=== PATIENT | female | born 1960 | race Hispanic/Latino ===

== ENCOUNTER → 2017-10-12 | Outpatient (CLI) | payer BC | LOC: MAMMO 11:09 | PROVIDERS: ATTEND Internal Medicine | DX: Z12.31 Encounter for screening mammogram for malignant neoplasm of breast (principal) ==

== ENCOUNTER → 2018-08-07 | Day surgery (SDC) | payer BC ==
[2018-08-01 11:04] LABS: BASOPHILS # (AUTO) 0.1 (0.0-0.1); BASOPHILS % 0.6 % (0.0-1.0); EOSINOPHILS # (AUTO) 0.2 (0.0-0.4); EOSINOPHILS % 2.6 % (0.0-6.0); HEMATOCRIT 40.8 % (34.2-44.1); LYMPHOCYTES # (AUTO) 2.8 (1.0-3.2); LYMPHOCYTES % 30.4 % (18.0-39.1); MEAN CORPUSCULAR HGB CONC 34.3 g/dL (31-35); MEAN CORPUSCULAR VOLUME 87.6 fL (81-99); MONOCYTES # (AUTO) 1.1 (0.2-0.8); MONOCYTES % 11.9 % (4.4-11.3); NEUTROPHILS # (AUTO) 4.9 (2.1-6.9); NEUTROPHILS % 54.1 % (38.7-80.0); PLATELET COUNT 271 x10e3/uL (140-360); RED BLOOD COUNT 4.66 x10e6/uL (3.6-5.1); RED CELL DISTRIBUTION WIDTH 13.7 % (11.7-14.4)
[2018-08-01 11:27] LABS: ANION GAP 13.1 mmol/L (8-16); BLOOD UREA NITROGEN 14 mg/dL (7-26); BUN/CREATININE RATIO 19 (6-25); CALCIUM 9.6 mg/dL (8.4-10.2); CARBON DIOXIDE 28 mmol/L (22-29); CHLORIDE 104 mmol/L (98-107); CREATININE, SERUM 0.72 mg/dL (0.57-1.11); EST GLOMERULAR FILTRATION RATE > 60 ML/MIN (60-); GLUCOSE 100 mg/dL (74-118); POTASSIUM 4.1 mmol/L (3.5-5.1); SODIUM 141 mmol/L (136-145)
--- NOTE | 2018-08-01 11:38 | Diagnostic Imaging Report ---
EXAM: XR CHEST 2 VIEWS DATE: 08/01/2018 10:30 AM INDICATION: Preoperative, pain COMPARISON: None FINDINGS: Lines and Tubes: None Heart and Mediastinum: No acute cardiomediastinal findings. Lungs and Pleura: No significant pleural effusion, pneumothorax, or focal consolidation. Mild biapical scarring. Bones and Soft Tissues: No acute findings. IMPRESSION: 1. No acute cardiopulmonary findings. Signed by: Dr. Angel Newell MD on 08/01/2018 11:34 AM
[~2018-08-07] MED LIST: ACETAMINOPHEN 1000 MG/100 ML IV ONE; BACITRACIN 50,000 UNIT VIAL ONE; BETAMETHASONE DISODIUM PHOS 6 MG/ML VIAL ONE; BUPIVACAINE HCL 0.5% INJ 30 ML VIAL INJ ONE; CALTRATE 600 W1 EACH PO; CEFAZOLIN SOD 2 GM/D5W 50ML 50 ML IV ONE; CENTRUM COMPLE1 EACH PO; DEXAMETHASONE SOD PHOS INJ 4 MG/ML VIAL ONE; FENTANYL CITRATE/PF 100MCG/2 ML INJ ONE; LIDOCAINE HCL 1% LOCAL INJ 20 ML VIAL ONE; LIPITOR10 MG PO; MAGNESIUM OXID400 MG PO; MIDAZOLAM HCL 2 MG/2 ML VIAL ONE; MORPHINE SULFATE INJ 4 MG/ML INJ ONE; MUPIROCIN 2% OINT 22 GM TUBE ONE; OMEGA PLEX PO; ONDANSETRON HCL INJ 2 MG/ML VIAL ONE; PROBIOTIC & AC1 EACH PO; SEVOFLURANE INHAL SOLN 250 ML PEN BTL ONE; VIT PO; [UNRECOGNIZED DRUG - OTHER] PO; [UNRECOGNIZED DRUG - OTHER] PO
--- OUTSIDE RECORDS SUMMARY | 2018-08-07 05:32 | XMS REPORT ---
Author Author [facility] Address Unknown Phone Unavailable Care Team Providers Care [employer] Name Role Phone BASILIA ZHU Unavailable Unavailable BLAS RICE Unavailable Unavailable Problems This patient has no known problems. Allergies, Adverse Reactions, Alerts This patient has no known allergies or adverse reactions. Medications This patient has no known medications. Results Test Description Test Time Test Comments Text Results Atomic Results Result Comments CHEST 2 VIEWS 2018-08-01 11:34:00 [facility] [address] [place] [address] Patient Name: SUNIL GOMES MR #: [id number] : 1960 Age/Sex: 58/F Req #: [id number] Adm Physician: Ordered by: BASILIA ZHU DPM Report #: [id number] Location: OR Room/Bed: Procedure: [id number] DX/CHEST 2 VIEWS Exam Date: 08/01/18 Exam Time: 1035 REPORT STATUS: Signed EXAM: XR CHEST 2 VIEWS DATE: 08/01/2018 10:30 AM INDICATION: Preoperative, pain COMPARISON: None FINDINGS: Lines and Tubes: None Heart and Mediastinum: No acute cardiomediastinal findings. Lungs and Pleura: No significant pleural effusion, pneumothorax, or focal consolidation. Mild biapical scarring. Bones and Soft Tissues: No acute findings. IMPRESSION: 1. No acute cardiopulmonary findings. Signed by: Dr. Angel Newell MD on 08/01/2018 11:34 AM Dictated By: ANGEL NEWELL MD 33 Transcribed By: NIRAV on 08/01/181133 COPY TO: BASILIA ZHU DPM MAMMOGRAM DIGITAL SCR BI [place] [address] Patient Name: SUNIL GOMES MR #: [id number] : 1960 Age/Sex: 57/F Req #: [id number] Adm Physician: Ordered by: DARIO GONZALEZ MD Report #: [id number] Location: MAMMO Room/Bed: Procedure: [id number] MG/MAMMOGRAM DIGITAL SCR BI Exam Date: 10/12/17 Exam Time: 1111 REPORT STATUS: Signed #[id number] - MGSCRNBI #BILATERAL DIGITAL SCREENING MAMMOGRAM WITH CAD: 10/12/2017 CLINICAL: Routine screening. Comparison is made to exams dated: 06/28/2016 mammogram and 12/22/2014 mammogram - [facility]. Current study contains 4 films. The tissue of both breasts is predominantly fatty. Current study was also evaluated with a Computer Aided Detection (CAD) system. No significant masses, calcifications, or other findings are seen in either breast. There has been no significant interval change. IMPRESSION: NEGATIVE There is no mammographic evidence of malignancy. A 1 year screening mammogram is recommended. The patient will be notified by letter of the results. Aylin colvin/xavi:10/25/2017 08:41:34 Blade Balancer: Jackelyn HARRELL(R)(M), [facility] letter sent: Compared to Prior B9 Mammogram BI-RADS: 1 Negative Dictated By: AYLIN TIDWELL DO 0 Transcribed By: XAVI on 10/25/17840 COPY TO: DARIO GONZALEZ MD
--- NOTE | 2018-08-07 09:50 | Diagnostic Imaging Report ---
PROCEDURE:X-RAY RIGHT FOOT, TWO VIEWS COMPARISON:None. INDICATIONS:POST RIGHT FOOT SURGERY FINDINGS: See conclusion. CONCLUSION: AP and lateral post-operative views of the right foot with overlying bandage material show post-surgical changes with a wire and screw traversing the distal shaft of the first metatarsal and a surgical pin traversing the phalanges of the fourth ray. There is surrounding soft-tissue swelling consistent with recent surgery. Please refer to performing physician's notes for full details of this procedure. Dictated by: Pancho Sandoval M.D. on 08/07/2018 at 10:00 Electronically approved by: Pancho Sandoval M.D. on 08/07/2018 at 10:00
--- NOTE | 2018-08-07 09:57 | Operative Report ---
DATE OF PROCEDURE: August 07, 2018 PREOPERATIVE DIAGNOSES 1. Painful hallux valgus deformity, right foot. 2. Painful contracted hammer toe, 4th digit, right. 3. Painful contracted hammer toe, 5th digit, right. 4. Painful plantar fascitis with heel spur syndrome, right foot. 5. 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 6. Painful Puentes's neuroma, 3rd interspace, right foot. POSTOPERATIVE DIAGNOSES 1. Painful hallux valgus deformity, right foot. 2. Painful contracted hammer toe, 4th digit, right. 3. Painful contracted hammer toe, 5th digit, right. 4. Painful plantar fascitis with heel spur syndrome, right foot. 5. 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 6. Painful Puentes's neuroma, 3rd interspace, right foot. OPERATIVE PROCEDURES 1. Spenser bunionectomy with screw fixation, right foot. 2. Arthroplasty, 4th digit with Orlando wire fixation of 4th. 3. Arthroplasty, 5th digit with [place] wire fixation of 5th. 4. Resection of plantar calcaneal heel spur, right foot. 5. Excision of neuroma, 3rd interspace, right foot and neurolysis of the 2nd interspace neuroma to the right foot. 6. Excision of neuroma, 4th interspace, right foot and neurolysis of the 2nd interspace neuroma to the right foot. 7. Intraoperative use of fluoroscopy. 8. Trigger point shot of cortisone. 9. Application of posterior splint. ANESTHESIA: General. HEMOSTASIS: Pneumatic thigh tourniquet at 350 mmHg. PROCEDURE IN DETAIL: Patient was taken into the operating room and placed on the operating room table in the supine position. Following induction of general anesthesia by the anesthesiologist, Webril wraps were placed on the patient's right thigh followed by application of right thigh tourniquet. The right lower extremity was then prepped and draped in the usual aseptic manner. The following procedure was then performed. PROCEDURE #1: Spenser bunionectomy with screw fixation, right foot. Attention was directed to the dorsomedial aspect of the 1st MPJ where a 6 cm linear incision was performed. The incision was deepened down via sharp and blunt dissection being careful to retract vital structures and ligate superficial vessels as necessary. Once the level of the capsule was reached, linear longitudinal capsulotomy was then performed exposing the dorsomedial exostosis to the 1st metatarsal head. Via use of an oscillating saw and rotating bur, dorsomedial exostosis was excised from the operation site in toto. A V-osteotomy was then performed from medial to lateral. Capital fragment was then transpositioned laterally. Upon adequate surgical and anatomical reduction utilizing proper AO technique, a 2 x 16 mm cortical screw in conjunction with a buried 0.045 K-wire was used to achieve stability of the osteotomy site. All redundant bone medial was excised via the use of an oscillating saw and rotating bur. PROCEDURES #2 AND #3: Arthroplasty, 4th and 5th digits with K-wire fixation of 4th. Attention was then directed to the dorsal aspect of the above-mentioned toes where a 3 cm linear incision was performed. The incision was deepened down to the joint capsule. Transverse capsulotomy was then performed exposing the head of the proximal phalanx. Via the use of an oscillating saw, head of proximal phalanxes were excised from the operation site in toto. The 4th toe was still noted to be contracted, so a 0.045 K-wire was introduced up the metatarsophalangeal joint to achieve proper anatomical reduction. PROCEDURE #4: Resection of plantar calcaneal heel spur, right foot. Attention was then directed to the medial aspect of the right heel where a 4 to 5 cm linear incision was performed. Incision was deepened down to the plantar fascial level. Plantar fascia was clearly visualized. The medial one-half of the plantar fascia was cut at the resection site. The plantar calcaneal spur was then visualized, and utilizing a bone rasp, the spur was rasped smooth and resected. PROCEDURE #5: Excision of Puentes's neuroma, 3rd interspace, right foot. Attention was directed to the 3rd interspace right foot where a curvilinear incision was performed. The incision was deepened via blunt dissection being careful to retract any vital structures and ligating any superficial vessels if necessary. Once the level of the intermetatarsal ligament was reached, utilizing Metzenbaum scissors, the intermetatarsal ligament was cut. White soft tissue mass was then encountered. Proper digital branches and intermetatarsal branch was then dissected. The white mass was excised from the operation site in toto and sent for pathological analysis. PROCEDURE #6: Neurolysis, 2nd interspace neuroma, right foot. Attention was then directed to the 2nd interspace where a 2 cm incision linear incision was performed to the interspace area. Utilizing a Claude guard ligament separator and then the Claude guard, the Claude guard was then introduced to the incision area, and the Claude guard blade was introduced through the Claude guard releasing the intermetatarsal ligament and neurolysing the neuroma to the 2nd interspace of the right foot. All areas were then copiously flushed with sterile antibiotic solution and suctioned. PROCEDURE #7: Intraoperative use of fluoroscopy was then used to make sure proper alignment and fixation was achieved. Closure was then obtained utilizing 3-0 Vicryl, 4-0 Vicryl and 4-0 nylon for capsule, subcutaneous tissue and skin respectively. Prior to closing, a TLS 7-mm drain was inserted to the heel area to prevent any type of hematoma formation. PROCEDURE #8: Trigger point shot of cortisone was then given to the 1st and 4th interspace of the right foot. Then approximately 15 mL of 0.5% plain Marcaine plus mL of 1% Xylocaine plain were used to achieve local anesthesia to the above-mentioned surgical area. Sterile dressing was applied upon release of the thigh tourniquet. Blood hyperemia was noted to be immediate to all digits of the patient's right foot. PROCEDURE #9: Application of posterior splint. A properly placed posterior splint was then applied keeping the foot at 90 degrees with respect to the leg to try to prevent any type of postoperative complications. Patient was then transferred from the OR to the recovery room with vital signs stable and neurovascular status intact. No intraoperative complications were encountered. Blood loss from the surgery was minimal. Patient to remain nonweightbearing with the aid of crutches. Keep her foot elevated. Is to apply an ice pack to the ankle joint area. Job#: [id number] RI
[2018-08-07 10:25] VITALS: BP 143/86
== END | disposition home or self-care (01) ==
LOC: OR 05:28
PROVIDERS: ATTEND Podiatrist Foot Surgery
DX: M20.11 Hallux valgus (acquired), right foot (principal); M20.41 Other hammer toe(s) (acquired), right foot; G57.61 Lesion of plantar nerve, right lower limb; M77.31 Calcaneal spur, right foot; E78.5 Hyperlipidemia, unspecified; F32.9 Major depressive disorder, single episode, unspecified; F41.9 Anxiety disorder, unspecified; Z01.810 Encounter for preprocedural cardiovascular examination; Z01.812 Encounter for preprocedural laboratory examination; Z01.818 Encounter for other preprocedural examination; Z86.19 Personal history of other infectious and parasitic diseases
CPT/HCPCS: 28080; 28119; 28285 ×2; 28296; 36415; 64704; 71046; 73620; 80048; 85025; 88304; 93005; C1713; J0131; J0690; J0720; J1100; J2001; J2250; J2270; J2405

== ENCOUNTER → 2019-02-18 | Outpatient (CLI) | payer BC ==
[~2019-02-18] MED LIST changes: -ACETAMINOPHEN 1000 MG/100 ML IV ONE; -BACITRACIN 50,000 UNIT VIAL ONE; -BETAMETHASONE DISODIUM PHOS 6 MG/ML VIAL ONE; -BUPIVACAINE HCL 0.5% INJ 30 ML VIAL INJ ONE; -CEFAZOLIN SOD 2 GM/D5W 50ML 50 ML IV ONE; -DEXAMETHASONE SOD PHOS INJ 4 MG/ML VIAL ONE; -FENTANYL CITRATE/PF 100MCG/2 ML INJ ONE; -LIDOCAINE HCL 1% LOCAL INJ 20 ML VIAL ONE; -MIDAZOLAM HCL 2 MG/2 ML VIAL ONE; -MORPHINE SULFATE INJ 4 MG/ML INJ ONE; -MUPIROCIN 2% OINT 22 GM TUBE ONE; -ONDANSETRON HCL INJ 2 MG/ML VIAL ONE; -SEVOFLURANE INHAL SOLN 250 ML PEN BTL ONE
== END ==
LOC: MAMMO 13:37
PROVIDERS: ATTEND Obstetrics & Gynecology
DX: Z12.31 Encounter for screening mammogram for malignant neoplasm of breast (principal)
CPT/HCPCS: 77067

== ENCOUNTER → 2020-09-21 | Outpatient (CLI) | payer BC | LOC: MAMMO 13:05 | PROVIDERS: ATTEND Internal Medicine | DX: Z12.31 Encounter for screening mammogram for malignant neoplasm of breast (principal) | CPT/HCPCS: 77067 ==

== ENCOUNTER → 2021-12-15 | Outpatient (CLI) | payer BC | LOC: MAMMO 12:45 | PROVIDERS: ATTEND Internal Medicine | DX: Z12.31 Encounter for screening mammogram for malignant neoplasm of breast (principal) | CPT/HCPCS: 77067 ==

== ENCOUNTER → 2022-12-28 | Outpatient (CLI) | payer BC | LOC: MAMMO 12:29 | PROVIDERS: ATTEND Internal Medicine | DX: Z12.31 Encounter for screening mammogram for malignant neoplasm of breast (principal) | CPT/HCPCS: 77067 ==

== ENCOUNTER → 2025-02-11 | Outpatient (REF) | payer MEDICARE, BC | LOC: MAMMO 13:12 | PROVIDERS: ATTEND Internal Medicine | DX: Z12.31 Encounter for screening mammogram for malignant neoplasm of breast (principal) | CPT/HCPCS: 77067 ==